=== PATIENT | male | born 1935 | race Caucasian/White ===

== ENCOUNTER 2017-09-08 11:24 | Inpatient (IN) | payer OTHER ==
[~2017-09-08] VITALS: Ht 180.3 cm; Wt 99.3 kg
--- NOTE | ~2017-09-08 | P ---
[facility] [place] [address] PROCEDURE REPORT Name: JANIA QUEEN Room #: 451-P [facility] IN ..#: [id number] Admission: 09/08/17 Attend Phys: Esteban Mcgee MD Discharge: Date of : 33 Report #: [id number] THIS REPORT FOR: //name// CC: Mark Mcgee MD DATE OF SERVICE: 09/10/2017 PROCEDURE PERFORMED: ERCP with sphincterotomy and stone removal. HISTORY OF PRESENT ILLNESS: The patient is an 81-year-old male with abdominal pain in the right upper quadrant. He was evaluated at [facility] and had an MRCP there, which revealed choledocholithiasis and intrahepatic and extrahepatic ductal dilation. Cholelithiasis was also noted. No gallbladder wall thickening. Bilirubin yesterday was 3.4. He had pancreatitis with a lipase of 3471. Labs today show total bilirubin of 2.3 and lipase is 354. WBC is 4.7. Plan is for ERCP. DESCRIPTION OF PROCEDURE: The risks and benefits of the procedure were explained to the patient those risks including but not limited to bleeding, perforation, the risk of sedation as well as the potential risk for post-ERCP pancreatitis. He understood these risks and gave informed consent. The procedure was performed in the IR suite under general anesthesia. The patient was given 1 gram of Ancef prior to the procedure. He was also given 50 mg indomethacin rectal suppository. Next, using a standard Olympus ERCP scope, the scope was placed in the patient's mouth and advanced under direct vision through the esophagus, stomach and into the second portion of the duodenum, at which point the major papilla was identified and normal in appearance. There was a small diverticulum above the papilla. Next, using a Yogi-Aircuity 0.25 dome tipped sphincterotome catheter, the common bile duct was cannulated without difficulty and a cholangiogram was obtained. There was a single filling defect noted in the common bile duct. There was mild dilation of the common bile duct to approximately 10 mm. The intrahepatics appeared normal. The cystic duct and gallbladder did fill. At this point, a wire was passed up into the intrahepatic ducts and a sphincterotomy was performed without difficulty. Next, the sphincterotome was removed and balloon catheter was used to sweep the duct. A single stone was removed and some other debris was removed as well. Next using a wire basket, several more passes were made with a wire basket. There was no further debris or stones noted. A repeat cholangiogram showed no further filling defects. At this point, the scope was then withdrawn and the procedure terminated. The patient tolerated the procedure well. IMPRESSION: [address] [address] PROCEDURE REPORT Name: JANIA QUEEN Room #: 451-P [facility] IN M.R.#: [id number] Admission: 09/08/17 Attend Phys: Esteban Mcgee MD Discharge: Date of : 33 Report #: [id number] 1. Common bile duct stone with sludge, status post ERCP with sphincterotomy and stone and sludge removal as described above. 2. Normal appearing intrahepatic ducts. 3. Cystic duct and gallbladder did fill. RECOMMENDATIONS: 1. Observe the patient post-procedure. 2. Plan is for laparoscopic cholecystectomy in the near future. Thank you for allowing me to participate in his care. By: 1352 0024 Janak Dunn MD /nt
--- NOTE | ~2017-09-08 | PATH ---
[facility] [place] [address] PATHOLOGY RPT PROCEDURE Name: JANIA QUEEN Room #: 451-P [facility] IN M.R.#: [id number] Admission: 09/08/17 Date of : 33 Discharge: 09/14/17 Report #: [id number] Path Case #: [id number] [facility] Accession Number: [id number] . 01 Material submitted: . GALLBLADDER . 01 Clinical history: . choledocolithiasis and chronic cholecystitis . 02 Diagnosis: Gallbladder, cholecystectomy: - Moderate acute and chronic cholecystitis with prominent germinal centers. - Negative for dysplasia or malignancy. - Cholelithiasis. (IUV:pit; 09/14/2017) . QTP/09/14/2017 . 02 Electronically signed: . Rosalia Bob MD, Pathologist NPI- [id number] . 01 Gross description: . The specimen is received in formalin, labeled "Jania Queen, gallbladder" and consists of a previously opened pink-lamar and dusky gallbladder. The mucosa is pink-lamar and mildly trabeculated with the wall ranging from 0.1-0.5 cm. Multiple green-brown and multifaceted calculi are present in the container measuring 3.8 x 1.3 x 0.6 cm in aggregate. No polyps or mass lesions are identified. Real Estate Developer sections are submitted in A1. (SDY; 09/13/2017) SYU/SYU . 02 [facility] . [id number] Performed at: [address] [id number] MD Elbert Cárdenas MD Phone: [phone] Performed at: [address] [id number] MD Rosalia Bob MD Phone: [phone]
[~2017-09-08 11:24] MED LIST: ASPIR 8181 MG PO; COL-RITE100 MG PO; FLOMAX0.4 MG PO; GLYBURIDE 5 MG T5 M1 PO; HYTRIN 5 M5 MG/1 CAP PO; LEVAQUIN 500 M500 M2 PO; LISINOPRIL10 MG PO; LOVASTATIN 20 M20 MG PO; NORCO 10-325 T1 EACH PO; PROSCAR 5MG TABL5 MG PO; ROBITUSSIN100 MG/53 PO; VESICARE 5 MG TA5 MG PO; VITAMIN B-12500 MCG PO
[2017-09-08 12:20] VITALS: BP 112/47
[2017-09-08 16:00] VITALS: BP 110/48
[2017-09-08] MEDS ORDERED: PIOGLITAZONE15 MG PO (16:42)
[2017-09-08] MEDS ORDERED: COZAAR 25 MG TA25 M2 PO (16:43)
[2017-09-08] MEDS ORDERED: METANX CAPSULE1 EACH PO ×2 (16:44→16:49)
[2017-09-08] MEDS ORDERED: HYDROCODONE-AP1 EAC6 PO (16:51)
[2017-09-08] MEDS ORDERED: KETOROLAC TROMET5 ML OPHTHALMIC (16:57)
[2017-09-08] MEDS ORDERED: OMNIPRED5 ML OPHTHALMIC (17:04)
[2017-09-08] MEDS ORDERED: ARTIFICIAL TEAR1510 OPHTHALMIC (17:45)
[2017-09-08 20:33] VITALS: BP 105/52
[2017-09-09 00:10] VITALS: BP 119/54
[2017-09-09] MEDS ORDERED: ARTIFICIAL TEAR15 M1 OPHTHALMIC (02:52)
[2017-09-09 04:59] VITALS: BP 97/47
[2017-09-09 06:02] LABS: ABSOLUTE NEUTROPHILS 6.3 thou/uL (1.4-8.2); BASOPHILS 0.3 % (0.0-2.0); EOSINOPHILS 0.5 % (0.0-3.0); HEMATOCRIT 33.9 % (42.0-52.0); HEMOGLOBIN 11.6 gm/dL (14.0-18.0); LYMPHOCYTES 9.9 % (24.0-44.0); MCH 35.5 pg (26.0-34.0); MCHC 34.3 g/dL (28.0-37.0); MCV 103.3 fL (80.0-100.0); MONOCYTES 10.8 % (1.0-8.0); POLYS 78.5 % (36.0-66.0); RBC 3.28 mil/uL (4.50-6.00); RDW 14.5 % (10.5-14.5)
[2017-09-09 06:14] LABS: ALBUMIN 2.9 g/dL (3.4-5.0); CALCIUM 8.4 mg/dL (8.5-10.1); CREATININE 1.7 mg/dL (0.7-1.3); DIRECT BILIRUBIN 2.6 mg/dL (<0.1-0.3); POTASSIUM 5.3 mmol/L (3.5-5.1); TOTAL BILIRUBIN 3.5 mg/dL (<0.1-1.0); TOTAL PROTEIN 5.8 g/dL (6.4-8.2)
[2017-09-09 08:00] VITALS: BP 119/54
[2017-09-09 08:25] LABS: PLATELET COUNT 72 thou/uL (150-400); PLATELET ESTIMATE DECREASED
[2017-09-09 08:26] LABS: ANISOCYTOSIS 1+; MACROCYTES 1+
[2017-09-09 16:00] VITALS: BP 133/54
[2017-09-09 19:12] VITALS: BP 133/69
[2017-09-09 19:20] VITALS: BP 142/67
[2017-09-10 03:03] VITALS: BP 142/67
[2017-09-10 05:55] LABS: HEMATOCRIT 32.9 % (42.0-52.0); HEMOGLOBIN 11.2 gm/dL (14.0-18.0); MCHC 33.9 g/dL (28.0-37.0); MCV 103.3 fL (80.0-100.0); RBC 3.19 mil/uL (4.50-6.00); RDW 14.7 % (10.5-14.5); WBC 4.7 thou/uL (4.0-11.0)
[2017-09-10 06:19] LABS: ALBUMIN 2.7 g/dL (3.4-5.0); CALCIUM 8.8 mg/dL (8.5-10.1); CREATININE 1.4 mg/dL (0.7-1.3); POTASSIUM 4.4 mmol/L (3.5-5.1); TOTAL BILIRUBIN 2.3 mg/dL (<0.1-1.0); TOTAL PROTEIN 5.6 g/dL (6.4-8.2)
[2017-09-10 08:00] VITALS: BP 141/59
[2017-09-10 16:00] VITALS: BP 153/56
[2017-09-10 19:07] VITALS: BP 164/72
[2017-09-11 03:49] VITALS: BP 133/49
[2017-09-11 07:18] VITALS: BP 147/62
[2017-09-11 16:15] VITALS: BP 149/60
[2017-09-11 20:05] VITALS: BP 142/65
[2017-09-12 04:40] VITALS: BP 156/63
[2017-09-12 05:25] LABS: ABSOLUTE NEUTROPHILS 2.8 thou/uL (1.4-8.2); BASOPHILS 0.5 % (0.0-2.0); EOSINOPHILS 1.6 % (0.0-3.0); HEMATOCRIT 33.4 % (42.0-52.0); HEMOGLOBIN 11.6 gm/dL (14.0-18.0); LYMPHOCYTES 19.1 % (24.0-44.0); MCH 35.4 pg (26.0-34.0); MCHC 34.7 g/dL (28.0-37.0); MONOCYTES 11.1 % (1.0-8.0); PLATELET COUNT 75 thou/uL (150-400); POLYS 67.7 % (36.0-66.0); RBC 3.28 mil/uL (4.50-6.00); RDW 14.3 % (10.5-14.5); WBC 4.1 thou/uL (4.0-11.0)
[2017-09-12 08:35] VITALS: BP 159/61
[2017-09-12 16:04] VITALS: BP 140/63
[2017-09-12 19:25] VITALS: BP 136/57
[2017-09-13] VITALS (9 sets, daily range): BP systolic 125–171; BP diastolic 42–67
[2017-09-14 03:45] VITALS: BP 135/59
[2017-09-14 08:06] VITALS: BP 129/52
[2017-09-14 10:45] VITALS: BP 129/52
[2017-09-14 12:10] VITALS: BP 129/52
== END 2017-09-14 11:58 | disposition home health service (06) | DRG 417 ==
LOC: 4W 11:24 → ENTRNSPT 09-14 11:33 → EDTRNSPTSTS 09-14 11:36 → 4W 09-14 11:58
PROVIDERS: Hospitalist; Nurse Practitioner
DX: K80.66 Calculus of gallbladder and bile duct with acute and chronic cholecystitis without obstruction (principal); K85.10 Biliary acute pancreatitis without necrosis or infection; E43 Unspecified severe protein-calorie malnutrition; N17.9 Acute kidney failure, unspecified; J90 Pleural effusion, not elsewhere classified; I10 Essential (primary) hypertension; E78.5 Hyperlipidemia, unspecified; K82.8 Other specified diseases of gallbladder; N40.0 Benign prostatic hyperplasia without lower urinary tract symptoms; E11.42 Type 2 diabetes mellitus with diabetic polyneuropathy; E66.9 Obesity, unspecified; K59.00 Constipation, unspecified; E56.8 Deficiency of other vitamins; Z86.73 Personal history of transient ischemic attack (TIA), and cerebral infarction without residual deficits; Z88.8 Allergy status to other drugs, medicaments and biological substances; Z88.7 Allergy status to serum and vaccine; Z79.899 Other long term (current) drug therapy; Z87.891 Personal history of nicotine dependence; Z68.30 Body mass index [BMI] 30.0-30.9, adult
CPT/HCPCS: 10047; 50010; 50101; 50249; 50411; 50555; 50558; 50962; 51489; 52168; 52265; 52266; 53307; 53310; 54022; 54118; 55245; 55317; 56462; 56525; 56526; 56639; 62110; 62900; 70005

== ENCOUNTER 2018-02-25 13:18 | Inpatient (IN) | payer OTHER ==
[~2018-02-25] VITALS: Ht 180.3 cm; Wt 49.6 kg
--- NOTE | ~2018-02-25 | PATH ---
[facility] [address] [place] [address] PATHOLOGY RPT PROCEDURE Name: JANIA QUEEN Room #: 206-P [facility] IN M.R.#: [id number] Admission: 02/25/18 Date of : 33 Discharge: 02/28/18 Report #: [id number] Path Case #: [id number] Note [facility] Accession Number: [id number] TESTS RESULT FLAG UNITS REF RANGE LAB Clinician Provided Cytology Information No. of containers..01 Other (Miscellaneous) Source: PLEURAL FLUID DIAGNOSIS: 02 LEFT PLEURAL FLUID NEGATIVE FOR MALIGNANT CELLS. SCANT CELLULARITY. MESOTHELIAL CELLS ARE PRESENT. THIS INTERPRETATION INCLUDES EVALUATION OF A CELL BLOCK. Signed out by: Rosalia Bob MD, Pathologist NPI- [id number] Performed by: Marty Leggett, Paint Tester ([facility]) Gross description: 01 15 ML, YELLOW, CLEAR /LCS FLAG LEGEND: L-Low Normal,H-High Normal,LL-Alert Low,HH-Alert High <-Panic Low,>-Panic High,A-Abnormal,AA-Critical Abnormal Performed at: [address] [place] [address] Elbert Cárdenas MD, [address] [address] Rosalia Bob MD, Specimen Comment: A courtesy copy of this report has been sent to Specimen Comment: [phone]. Specimen Comment: Report sent to Specimen Comment: A duplicate report has been generated due to demographic updates. Performed at: [address], [place], [place] [id number] MD Elbert Cárdenas MD Phone: [phone]
--- NOTE | ~2018-02-25 | HC ---
[facility] [place] [address] CONSULTATION Name: BRETJANIA Jimenez Room #: 206-P [facility] IN M.R.#: [id number] Admission: 02/25/18 Attend Phys: Juan C Alvarez MD Discharge: 02/28/18 Date of : 33 Report #: [id number] THIS REPORT FOR: //name// CC: Mark Omer TYPE OF REPORT: Pulmonary consultation. PRIMARY CARE PHYSICIAN: Bernabe Omer M.D. REASON FOR REFERRAL: Pleural effusion. HISTORY OF PRESENT ILLNESS: The patient is an 82-year-old white male who was admitted with progressive dyspnea. He was found to have a large pleural effusion. A pulmonary consultation was requested. The patient states that he underwent laparoscopic cholecystectomy on 09/13/2017 at [facility]. He was found to have acute cholecystitis due to cholelithiasis. He did well postoperatively. Sometimes shortly after surgery, he noticed that he was getting dyspneic with moderate exertion. Symptoms are about several months ago. He was scheduled to see Pulmonary for his dyspnea. A few days ago, he complained of left-sided pleuritic chest pain. He was seen in the Emergency Room. Chest x-ray revealed moderate left-sided pleural effusion. The patient was admitted. A thoracentesis was performed. Currently, he feels better. He feels like the pleural fluid is re-accumulating on the left side. Otherwise, denies any recent febrile illness, night sweats or chills, chest pain or productive cough. The patient states that he has smoked for few years, quit many years ago. Denies any history of occupational exposure to dust or toxins. He has been primarily a trucker hand. He denies any history of chronic lung disease. He denies any past history of pleural effusion. 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 ALLERGIES: To GABAPENTIN, reaction not specified. [facility] [address] [place] [address] CONSULTATION Name: BRETJANIA Tony Room #: 206-P [facility] IN M.R.#: [id number] Admission: 02/25/18 Attend Phys: Juan C Alvarez MD Discharge: 02/28/18 Date of : 33 Report #: [id number] HOME MEDICATIONS: Reviewed. This include Mobic, Actos, Cozaar, Metanx, Popejoy, ophthalmic ketorolac, prednisolone, aspirin, vitamin supplements, Proscar, glyburide, Mevacor, VESIcare, Flomax and Hytrin. FAMILY HISTORY: Noncontributory. SOCIAL HISTORY: Has smoked remotely but quit many years ago. Denies any alcohol use. He is . He is a retired trucker hand. REVIEW OF SYSTEMS: As mentioned above, otherwise 10-point system review negative. PHYSICAL EXAMINATION: GENERAL: Awake and alert, in no apparent distress. VITAL SIGNS: Temperature is 98 degrees Fahrenheit, pulse is 72, respiratory rate is 18, blood pressure 110/49 mmHg and saturation 97%. HEENT: Normocephalic and atraumatic. NECK: Supple, without any lymphadenopathy or thyromegaly. CHEST: Breath sounds are decreased in the bases. Few scattered crackles. No wheezes. CARDIOVASCULAR: Normal S1 and S2. No murmurs or gallop. There is no JVD. There is no carotid bruit. Pulses are 2+/4+ bilaterally. ABDOMEN: Moderately obese, soft and nontender. No organomegaly or masses felt. GENITOURINARY: Deferred. RECTAL: Deferred. EXTREMITIES: There is no edema, cyanosis or clubbing. RADIOLOGICAL DATA: A 2D echocardiogram showed normal LV function, ejection fraction is normal, right ventricle and right atrium is normal. Moderate aortic sclerosis, mild mitral regurgitation and pulmonary artery pressure measured 45 mmHg. Today's chest x-ray shows mild left-sided pleural effusion. LABORATORY DATA: Pleural fluid protein was 3.7. Albumin is 2.4. LDH is 84. Amylase 28. Thoracentesis performed on yield 1700 mL of clear yellowish fluid. The cell, pleural fluid, showed predominance of macrophages and 30% lymphocytes. Color was said to be yellow, slightly hazy. I do not have the microbiologic studies on the pleural fluid, sed rate was normal. Electrolytes are normal except for creatinine of 1.5 and baseline creatinine appears to be 1.3-1.4. WBC 6300, hemoglobin 12.9 and platelets are reduced at 94,000. IMPRESSION: 1. Left-sided pleural effusion in this 82-year-old white male. He had a remote history of laparoscopic cholecystectomy in August of 2017. He has been dyspneic for the past several months with a recent onset of acute chest pain. His pleural fluid studies suggest that it is exudate. However, I do not find [address] [place] [address] CONSULTATION Name: JANIA QUEEN Room #: 206-P [facility] IN .R.#: [id number] Admission: 02/25/18 Attend Phys: Juan C Alvarez MD Discharge: 02/28/18 Date of : 33 Report #: [id number] microbiologic studies. Cytology is pending. Today, chest x-ray shows mild left-sided pleural effusion. 2. Chronic kidney disease. 3. Remote laparoscopic cholecystectomy. 4. Thrombocytopenia. 5. Diabetes mellitus type 2. 6. Hypertension. 7. Moderate obesity. RECOMMENDATIONS AND DISCUSSION: The pleural fluid suggests it is exudate; however, I do not find microbiology studies. Cytology is pending. The chest x-ray shows residual small left-sided pleural effusion. Etiology is unclear but given his history may be reactive to his recent surgery. However, given that it is exudate, cannot rule out other processes including inflammatory, possible occult neoplasm. We will await this pleural fluid studies for microbiologic studies and cytology. Overall, the patient is relatively stable from Pulmonary standpoint. He could be discharged and follow up in the office regarding his pleural fluid. Thank you for this consultation. <ELECTRONICALLY SIGNED> By: Eugenio Guzman MD 02/28/18 1407 1342 2332 Eugenio Guzman MD /nt
--- NOTE | ~2018-02-25 | EKG ---
[address] [email or web address] [address] ELECTROCARDIOGRAM REPORT Name: JANIA QUEEN Room #: 206-P ADM IN M.R.#: [id number] Admission: 02/25/18 Attend Phys: Juan C Alvarez MD Discharge: Date of : 33 Report #: [id number] THIS REPORT FOR: //name// [facility] Test Date: 2018-02-26 Test Time: 07:40:16 Pat Name: JANIA QUEEN Department: Room: 206 Gender: M Co Chairman: JUS : 1935 Requested By: Bernabe Omer Order Number: [id number] MD: Aldo Zaldivar Measurements Intervals [place] Rate: 68 P: 27 [place]: 155 QRS: -71 QRSD: 153 T: 30 QT: 422 QTc: 449 Interpretive Statements Sinus rhythm RBBB and LAFB Baseline wander in lead(s) V2 Compared to ECG 05/21/2015 14:37:13 Left anterior fascicular block now present Left-axis deviation no longer present Electronically Signed On 02-26-2018 9:38:41 FOOD COOKING MACHINE OPERATOR by Aldo Zaldivar [email or web address] <ELECTRONICALLY SIGNED> By: Aldo Zaldivar MD 02/26/18937 9 9 Aldo Zaldivar MD /JEANETTE
--- NOTE | ~2018-02-25 | 2DMMODE ---
[facility] [address] [place] [address] 2 D/M-MODE ECHOCARDIOGRAM Name: JANIA QUEEN Room #: 206-P [facility] IN ..#: [id number] Admission: 02/25/18 Attend Phys: Juan C Alvarez, Discharge: Date of : 33 Date of Service: 02/27/18 1036 Report #: [id number] THIS REPORT FOR: //name// APPROVED REPORT Study performed: 02/26/2018 08:58:42 EXAM: Comprehensive 2D, Doppler, and color-flow Echocardiogram with contrast Patient Location: Bedside Room #: 206 Status: routine BSA: 2.27 HR: 64 bpm BP: 143/59 mmHg Rhythm: NSR Other Information Study Quality: Fair Indications Dyspnea Chest Pain Hypertension/HDD Pleural Effusion Echo Enhancing Agent Indication: Endocardial border delineation Agent(s) / Amount(s) Used: Optison 6 cc 2D Dimensions RVDd: 44.37 mm IVSd: 15.55 (7-11mm) LVOT Diam: 23.29 (18-24mm) LVDd: 47.09 mm PWd: 12.98 (7-11mm) Ascending Ao: 34.95 (22-36mm) LVDs: 31.24 (25-40mm) Aortic Root: 35.14 mm Volumes Left Atrial Volume (Systole) Single Plane 4CH: 58.35 mL Single Plane 2CH: 51.45 mL LA ESV Index: 29.30 mL/m2 Aortic Valve AoV Peak Gino.: 1.25 m/s AO Peak Gr.: 6.23 mmHg LVOT Max P.35 mmHg [facility] [address] [place] [address] 2 D/M-MODE ECHOCARDIOGRAM Name: JANIA QUEEN Room #: 206-P [facility] IN [facility]#: [id number] Admission: 02/25/18 Attend Phys: Juan C Alvarez, Discharge: Date of : 33 Date of Service: 02/27/18 1036 Report #: [id number] LVOT Max V: 1.26 m/s REYNA Vmax: 4.30 cm2 Mitral Valve E/A Ratio: 0.7 MV Decel. Time: 285.04 ms MV E Max Gino.: 1.15 m/s MV A Gino.: 1.56 m/s MV PHT: 82.66 ms IVRT: 110.73 ms Pulmonary Valve PV Peak Gino.: 1.01 m/s PV Peak Gr.: 4.14 mmHg Pulmonary Vein P Vein S: 0.83 m/s P Vein D: 0.61 m/s P Vein S/D Ratio: 1.36 Tricuspid Valve TR Peak Gino.: 3.15 m/s RAP Estimate: 5.00 mmHg TR Peak Gr.: 39.62 mmHg PA Pressure: 45.00 mmHg Left Ventricle The left ventricle is normal size. Mild concentric left ventricular hypertrophy. The left ventricular systolic function is normal. The left ventricular ejection fraction is within the normal range. LVEF is 60-65%. Transmitral Doppler flow pattern suggests impaired LV relaxation. Right Ventricle The right ventricle is normal size. The right ventricular systolic function is normal. Atria The left atrium size is normal. The right atrium size is normal. Aortic Valve Aortic valve is calcified. Moderate aortic valve sclerosis. No aortic regurgitation is present. There is no aortic valvular stenosis. Mitral Valve Mitral valve is not well visualized. The mitral valve appears normal [facility] [address] [place] [address] 2 D/M-MODE ECHOCARDIOGRAM Name: JANIA QUEEN Room #: 206-P [facility] IN ..#: [id number] Admission: 02/25/18 Attend Phys: Juan C Alvarez, Discharge: Date of : 33 Date of Service: 02/27/18 1036 Report #: [id number] in structure. Trace mitral regurgitation. No evidence of mitral valve stenosis. Tricuspid Valve The tricuspid valve is normal in structure. Mild to moderate tricuspid regurgitation. Estimated PAP of 45 mmHg. Pulmonic Valve Pulmonic valve is not well visualized. There is no pulmonic valvular regurgitation. Great Vessels The aortic root is normal in size. The ascending aorta is normal in size. IVC is normal in size and collapses >50% with inspiration. Pericardium There is no pericardial effusion. <Conclusion> The left ventricle is normal size. Mild concentric left ventricular hypertrophy. The left ventricular systolic function is normal. Transmitral Doppler flow pattern suggests impaired LV relaxation. The right ventricle is normal size. The left atrium size is normal. Aortic valve is calcified. Moderate aortic valve sclerosis. Trace mitral regurgitation. Mild to moderate tricuspid regurgitation. Estimated PAP of 45 mmHg. <ELECTRONICALLY SIGNED> By: Aldo Zaldivar MD 02/27/186 35 35 Aldo Zaldivar MD /INF
--- NOTE | ~2018-02-25 | EKG ---
[address] [address] ELECTROCARDIOGRAM REPORT Name: JANIA QUEEN Room #: 206-P ADM IN M.R.#: [id number] Admission: 02/25/18 Attend Phys: Juan C Alvarez MD Discharge: Date of : 33 Report #: [id number] THIS REPORT FOR: //name// [facility] Test Date: 2018-02-25 Test Time: 17:34:29 Pat Name: JANIA QUEEN Department: Room: 206 Gender: M Ammunition Assembly Laborer: Tony WHATLEY : 1935 Requested By: Bernabe Omer Order Number: [id number] MD: Aldo Zaldivar Measurements Intervals [place] Rate: 79 P: 34 [place]: 177 QRS: -81 QRSD: 151 T: 25 QT: 400 QTc: 459 Interpretive Statements Sinus rhythm RBBB and LAFB Baseline wander in lead(s) V3 Compared to ECG 05/21/2015 14:37:13 Left anterior fascicular block now present Left-axis deviation no longer present Electronically Signed On 02-26-2018 9:36:47 CODING SUPPORT SPECIALIST by Aldo Zaldivar [email or web address] <ELECTRONICALLY SIGNED> By: Aldo Zaldivar MD 02/26/18 0936 1734 1734 Aldo Zalidvar MD /[facility]
[~2018-02-25 13:18] MED LIST changes: +ARTIFICIAL TEAR15 M1 OPHTHALMIC; +ARTIFICIAL TEAR1510 OPHTHALMIC; +COZAAR 25 MG TA25 M2 PO; +HYDROCODONE-AP1 EAC6 PO; +KETOROLAC TROMET5 ML OPHTHALMIC; +METANX CAPSULE1 EACH PO; +OMNIPRED5 ML OPHTHALMIC; +PIOGLITAZONE15 MG PO
[2018-02-25 15:15] VITALS: BP 129/58
[2018-02-25] MEDS ORDERED: MOBIC7.5 MG PO (15:57)
[2018-02-25 17:50] LABS: COLOR YELLOW; SOURCE THORACENTESIS; TOTAL VOLUME 65 mL
[2018-02-25 17:51] LABS: CLARITY SL.HAZY
[2018-02-25 17:52] LABS: BF NUCLEATED CELLS 209; BF RBC 197
[2018-02-25 18:31] LABS: TROPONIN-I <0.06 ng/mL (<0.06)
[2018-02-25 18:47] LABS: BF MACROPHAGE 62; BF NEUTROPHILS 3
[2018-02-25 19:40] VITALS: BP 155/72
[2018-02-25 23:00] VITALS: BP 145/60
[2018-02-26 04:10] VITALS: BP 143/59
[2018-02-26 04:58] LABS: HEMATOCRIT 38.4 % (42.0-52.0); HEMOGLOBIN 13.3 gm/dL (14.0-18.0); MCH 35.4 pg (26.0-34.0); MCHC 34.7 g/dL (28.0-37.0); MCV 102.2 fL (80.0-100.0); PLATELET COUNT 81 thou/uL (150-400); RBC 3.76 mil/uL (4.50-6.00); RDW 14.2 % (10.5-14.5); WBC 5.1 thou/uL (4.0-11.0)
[2018-02-26 05:16] LABS: ALBUMIN 2.9 g/dL (3.4-5.0); ANION GAP 4 mmol/L (7-16); BUN 23 mg/dL (7-18); CALCIUM 8.6 mg/dL (8.5-10.1); CHLORIDE 103 mmol/L (98-107); CO2 30 mmol/L (21-32); CREATININE 1.3 mg/dL (0.7-1.3); GLUCOSE 123 mg/dL (74-106); MAGNESIUM 1.9 mg/dL (1.8-2.4); POTASSIUM 4.4 mmol/L (3.5-5.1); SGOT 11 U/L (15-37); SGPT 14 U/L (30-65); SODIUM 137 mmol/L (136-145); TOTAL BILIRUBIN 0.7 mg/dL (<0.1-1.0); TOTAL PROTEIN 5.8 g/dL (6.4-8.2); TROPONIN-I <0.06 ng/mL (<0.06)
[2018-02-26 05:30] LABS: ABSOLUTE NEUTROPHILS 3.1 thou/uL (1.4-8.2)
[2018-02-26 05:31] LABS: ANISOCYTOSIS 1+
[2018-02-26 08:21] VITALS: BP 141/55
[2018-02-26 11:53] VITALS: BP 117/46
[2018-02-26 16:43] VITALS: BP 134/39
[2018-02-26 20:45] VITALS: BP 111/49
[2018-02-27 05:25] LABS: ABSOLUTE NEUTROPHILS 4.8 thou/uL (1.4-8.2); BASOPHILS 0.3 % (0.0-2.0); EOSINOPHILS 0.2 % (0.0-3.0); HEMOGLOBIN 12.9 gm/dL (14.0-18.0); LYMPHOCYTES 12.2 % (24.0-44.0); MCH 35.2 pg (26.0-34.0); MCV 103.3 fL (80.0-100.0); MONOCYTES 11.6 % (1.0-8.0); PLATELET COUNT 94 thou/uL (150-400); POLYS 75.7 % (36.0-66.0); RBC 3.68 mil/uL (4.50-6.00); RDW 13.8 % (10.5-14.5); WBC 6.3 thou/uL (4.0-11.0)
[2018-02-27 05:28] VITALS: BP 111/41
[2018-02-27 05:34] LABS: CREATININE 1.5 mg/dL (0.7-1.3); POTASSIUM 4.2 mmol/L (3.5-5.1)
[2018-02-27 07:35] VITALS: BP 118/45
[2018-02-27 09:05] LABS: BODY FLUID ALBUMIN 2.4 g/dL (()); BODY FLUID AMYLASE 28 U/L (()); BODY FLUID CREATININE 1.4 mg/dL (()); BODY FLUID GLUCOSE 159 mg/dL (()); BODY FLUID LDH 84 IU/L (()); BODY FLUID PROTEIN 3.7 g/dL (())
[2018-02-27 15:47] VITALS: BP 120/45
[2018-02-27 19:15] VITALS: BP 105/49
[2018-02-28 03:56] LABS: CALCIUM 8.8 mg/dL (8.5-10.1); CREATININE 1.4 mg/dL (0.7-1.3); POTASSIUM 4.5 mmol/L (3.5-5.1)
[2018-02-28 04:21] VITALS: BP 106/48
[2018-02-28 04:29] LABS: HEMATOCRIT 37.2 % (42.0-52.0); HEMOGLOBIN 13.1 gm/dL (14.0-18.0); MCH 35.8 pg (26.0-34.0); MCHC 35.1 g/dL (28.0-37.0); RBC 3.65 mil/uL (4.50-6.00); RDW 13.9 % (10.5-14.5); WBC 5.2 thou/uL (4.0-11.0)
[2018-02-28 08:45] VITALS: BP 132/36
[2018-02-28 09:36] VITALS: BP 132/36
[2018-02-28 12:00] VITALS: BP 132/36
[2018-02-28 13:49] LABS: SOURCE THORACENTESIS
== END 2018-02-28 10:24 | disposition home health service (06) | DRG 186 ==
LOC: 2N 13:18 → ENTRNSPT 02-28 10:17 → EDTRNSPTSTS 02-28 10:23 → 2N 02-28 10:24
PROVIDERS: Internal Medicine
PROC: 0W9B3ZZ Drainage of Left Pleural Cavity, Percutaneous Approach (ICD-10-PCS; principal; 2018-02-25)
DX: J90 Pleural effusion, not elsewhere classified (principal); E43 Unspecified severe protein-calorie malnutrition; Z68.1 Body mass index [BMI] 19.9 or less, adult; E11.40 Type 2 diabetes mellitus with diabetic neuropathy, unspecified; N40.0 Benign prostatic hyperplasia without lower urinary tract symptoms; N18.9 Chronic kidney disease, unspecified; I12.9 Hypertensive chronic kidney disease with stage 1 through stage 4 chronic kidney disease, or unspecified chronic kidney disease; E11.22 Type 2 diabetes mellitus with diabetic chronic kidney disease; E78.5 Hyperlipidemia, unspecified; D69.6 Thrombocytopenia, unspecified; E66.09 Other obesity due to excess calories; Z87.442 Personal history of urinary calculi; Z86.73 Personal history of transient ischemic attack (TIA), and cerebral infarction without residual deficits; Z87.891 Personal history of nicotine dependence; Z90.49 Acquired absence of other specified parts of digestive tract; Z79.82 Long term (current) use of aspirin; Z79.899 Other long term (current) drug therapy; Z88.5 Allergy status to narcotic agent; Z88.7 Allergy status to serum and vaccine
CPT/HCPCS: 10081; 10797